=== PATIENT | male | born 1985 | race Caucasian/White ===

== ENCOUNTER 2018-01-21 08:31 | Emergency (ER) | payer BC ==
[~2018-01-21] VITALS: Ht 172.7 cm; Wt 70.3 kg
[2018-01-21] MEDS ORDERED: MULTIVITAMINS1 EAC7 PO (08:46)
[2018-01-21] MEDS ORDERED: ONDANSETRON ODT8 MG PO (11:05)
== END 2018-01-21 11:37 | disposition home or self-care (01) ==
LOC: ED 08:31
DX: R51 Headache (principal); R42 Dizziness and giddiness; Z79.899 Other long term (current) drug therapy
CPT/HCPCS: 70450; 80053; 85025; 96374; 96375; 99284; J2060; J2405; J7030